=== PATIENT | female | born 1950 | race Caucasian/White ===

== ENCOUNTER 2018-01-31 11:18 | Observation (INO) | payer MEDICARE ==
[~2018-01-31] VITALS: Ht 162.6 cm; Wt 60.3 kg
--- NOTE | 2018-01-31 12:21 | REP ---
CT Head without contrast HISTORY: Fall COMPARISON: None An area of decreased attenuation is present in the left basal ganglia. This represents an old lacunar infarction. Areas of decreased attenuation are present in the periventricular white matter. This represents small-vessel ischemic disease. There is no intraparenchymal hemorrhage, acute infarct, mass or midline shift. The ventricular system and cortical sulci as well as subarachnoid space in the posterior fossa are dilated consistent with mild volume loss. There is no extra cerebral collection. There is no fracture. The visualized sinuses are clear. IMPRESSION: 1. Old left basal ganglia lacunar infarction. 2. Small vessel ischemic disease. 3. Mild volume loss. Electronically Signed by Quan Quiñones MD 01/31/2018 12:13 P
--- NOTE | 2018-01-31 13:17 | REP ---
CT CERVICAL SPINE WITHOUT CONTRAST: HISTORY: Fall. There is no acute fracture or subluxation. Disc bulges are present at the C2-3 through C6-7 levels. There is minimal narrowing of the spinal canal. Uncinate process and/or facet hypertrophy are present at the C2-3 and C4-5 - C6-7 levels. These findings produce minimal narrowing of the neural foramina. The C5-6 and C6-7 intervertebral discs are decreased in height consistent with disc degeneration. IMPRESSION: 1. There is no acute fracture or subluxation. 2. There is cervical spondylosis at the C2-3 through C6-7 levels. Electronically Signed by Quan Quiñones MD 01/31/2018 01:20 P
[2018-01-31 13:35] LABS: BASO % 0.4 % (0.0-1.0); EOS % 0.1 % (0.0-3.0); HEMATOCRIT 41.2 % (36.0-47.0); HEMOGLOBIN 14.7 g/dl (12.0-15.5); LYMPH # 1.5 10^3/uL (1.5-4.5); LYMPH % 14.6 % (24.0-44.0); MEAN CORPUSCULAR HGB CONC 35.7 g/dl (32.0-36.5); MEAN CORPUSCULAR VOLUME 98.1 fl (80.0-96.0); MONO # 0.6 10^3/uL (0.0-0.8); MONO % 6.4 % (0.0-5.0); NEUTROPHILS # 7.8 10^3/uL (1.8-7.7); NEUTROPHILS % 78.2 % (36.0-66.0); PLATELET COUNT, AUTOMATED 284 10^3/uL (150-450); WHITE BLOOD COUNT 9.9 10^3/uL (4.0-10.0)
[2018-01-31] MEDS ORDERED: LABETALOL HCL 100 MG/20 ML VIAL IV STA (13:50)
[2018-01-31 13:56] LABS: INR 0.92; PROTHROMBIN TIME 12.4 SECONDS (12.1-14.4)
[2018-01-31 13:57] LABS: PARTIAL THROMBOPLASTIN TIME 28.8 SECONDS (25.4-37.6)
[2018-01-31 14:17] LABS: BLOOD UREA NITROGEN 12 MG/DL (7-18); CALCIUM LEVEL 9.5 MG/DL (8.8-10.2); CARBON DIOXIDE LEVEL 23 MEQ/L (21-32); CHLORIDE LEVEL 101 MEQ/L (98-107); GLOMERULAR FILTRATION RATE > 60.0 (>45); GLUCOSE, FASTING 94 MG/DL (70-100); POTASSIUM SERUM 4.3 MEQ/L (3.5-5.1); SODIUM LEVEL 134 MEQ/L (136-145)
[2018-01-31 14:19] LABS: CK-MB VALUE MASS < 1.0 NG/ML (<3.6); CPK CREATINE PHOSPHOKINASE 55 U/L (26-192); MB/CK RELATIVE INDEX 1.82 (< OR =4); TROPONIN I 0.02 NG/ML (< 0.10)
[2018-01-31] MEDS ORDERED: ASPIRIN 325 MG TAB PO ONE (14:30)
[2018-01-31] MEDS ORDERED: VITA500T PO (14:34)
[2018-01-31] MEDS ORDERED: CALC1TAB40 PO (14:34)
[2018-01-31] MEDS ORDERED: VITATAB11 PO (14:34)
[2018-01-31] MEDS ORDERED: FISH1000 PO (14:34)
[2018-01-31] MEDS ORDERED: VITAD1000T PO (14:34)
[2018-01-31] MEDS ORDERED: VITA400C67 PO (14:34)
[2018-01-31] MEDS ORDERED: ONDANSETRON 4MG/2ML VIAL (J2405) IV PRN (16:30)
[2018-01-31] MEDS ORDERED: LABETALOL HCL 100 MG/20 ML VIAL IV PRN (16:30)
[2018-01-31] MEDS ORDERED: LISINOPRIL 5 MG TAB PO ONE (16:45)
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
[2018-01-31 18:35] LABS: CK-MB VALUE MASS < 1.0 NG/ML (<3.6); CPK CREATINE PHOSPHOKINASE 16 U/L (26-192); MB/CK RELATIVE INDEX 6.25 (< OR =4); TROPONIN I 0.03 NG/ML (< 0.10)
--- NOTE | 2018-01-31 18:50 | ECGEPIP ---
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 Order Number: [id number] Reading MD: Deniz Chen Measurements Intervals [place] Rate: 93 P: 43 [place]: 155 QRS: 21 QRSD: 92 T: 17 QT: 337 QTc: 419 Interpretive Statements SINUS RHYTHM POSSIBLE LEFT ATRIAL ENLARGEMENT NO PRIORS FOR COMPARISON Electronically Signed On 01-31-2018 18:50:29 EST by Deniz Chen
--- NOTE | 2018-01-31 18:58 | REPVR ---
EXAM: MR Head Without Contrast EXAM DATE/TIME: 01/31/2018 5:22 PM CLINICAL HISTORY: 67 years old, female; Signs and symptoms; Visual disturbance; Patient HX: HX fall 3 days ago; Additional info: Diploplia TECHNIQUE: MR of the head without contrast. COMPARISON: MRA BRAIN W/O CONTRAST 01/31/2018 5:01 PM FINDINGS: Brain: There are several small hyperintense foci scattered throughout the white matter. DWI images demonstrate no evidence of acute infarct. Gradient echo images demonstrate no evidence of hemorrhage. There is no extra-axial collection. There is no mass. There are no abnormal flow voids. Ventricles: There is no hydrocephalus. Bones/joints: Unremarkable. Soft tissues: Normal. Sinuses: Normal as visualized. No acute sinusitis. Mastoid air cells: Normal as visualized. No mastoid effusion. Orbits: Unremarkable. IMPRESSION: Chronic microvascular disease. No acute lesion or injury. Electronically signed by: Domenic Smalls On 01/31/2018 18:58:27 PM
[2018-01-31 19:09] LABS: FOLATE > 24.0 NG/ML (>5.4); VITAMIN B12 LEVEL 1144 PG/ML (247-911)
--- NOTE | 2018-01-31 19:13 | REPVR ---
EXAM: MR Angiography Neck Without Contrast EXAM DATE/TIME: 01/31/2018 1:00 PM CLINICAL HISTORY: 67 years old, female; Signs and symptoms; Visual disturbance; Diplopia; Patient HX: HX fall 3 days ago; Additional info: Diploplia TECHNIQUE: Magnetic resonance angiography images of the neck without intravenous contrast. COMPARISON: CT Spine,cervical w/o contrast 01/31/2018 11:42 AM FINDINGS: Right common carotid artery: Normal. No significant stenosis. No dissection or occlusion. Right internal carotid artery: Normal. Extracranial segment is patent with no significant stenosis. No dissection or occlusion. Right external carotid artery: Normal. No significant stenosis. No dissection or occlusion. Right vertebral artery: Dominant. Normal. No significant stenosis. No dissection or occlusion. Left common carotid artery:Normal. No significant stenosis. No dissection or occlusion. Left internal carotid artery: Normal. Extracranial segment is patent with no significant stenosis. No dissection or occlusion. Left external carotid artery: Normal. No significant stenosis. No dissection or occlusion. Left vertebral artery: Mildly hypoplastic. Origin is partly obscured by artifact and cannot be fully evaluated, it is patent.. there is loss of signal in the left vertebral artery at the skull base.. IMPRESSION: No carotid stenosis. Dominant right vertebral artery. Hypoplastic left vertebral artery with loss of signal at the skull base further discussed on the brain MRA. COMMENT: Reference per NASCET criteria for degree of stenosis: Mild: <50% stenosis. Moderate: 50-69% stenosis. Severe: 70-94% stenosis. Near occlusion: 95-99% stenosis. Electronically signed by: Domenic mSalls On 01/31/2018 19:12:57 PM
--- NOTE | 2018-01-31 19:15 | REPVR ---
EXAM: MR Angiogram Head Without Contrast, Arteries EXAM DATE/TIME: 01/31/2018 5:22 PM CLINICAL HISTORY: 67 years old, female; Signs and symptoms; Visual disturbance; Diplopia; Patient HX: HX fall monday; Additional info: Diploplia TECHNIQUE: MR angiogram head without contrast. Exam focused on the arteries. COMPARISON: CT Head without contrast 01/31/2018 11:42 AM FINDINGS: Right internal carotid artery: Unremarkable. Intracranial segment is patent with no significant stenosis. No aneurysm. Right anterior cerebral artery: Unremarkable. No occlusion or significant stenosis. No aneurysm. Right middle cerebral artery: Unremarkable. No occlusion or significant stenosis. No aneurysm. Right posterior cerebral artery: Unremarkable. No occlusion or significant stenosis. No aneurysm. Right vertebral artery: The right vertebral artery is dominant. No stenosis or occlusion. No aneurysm. Left internal carotid artery: Unremarkable. Intracranial segment is patent with no significant stenosis. No aneurysm. Left anterior cerebral artery: Unremarkable. No occlusion or significant stenosis. No aneurysm. Left middle cerebral artery: Unremarkable. No occlusion or significant stenosis. No aneurysm. Left posterior cerebral artery: Unremarkable. No occlusion or significant stenosis. No aneurysm. Left vertebral artery: The left vertebral artery is hypoplastic. On this scan, there is a loss of signal in the left vertebral artery from C1-C3 foramen magnum. It becomes visible in the posterior fossa proximal to the origin of the left PICA which is widely patent. However, on the accompanying neck MRA, flow is visualized within part of the left vertebral artery which is not visible on the current scan. Basilar artery: Unremarkable. No occlusion or significant stenosis. No aneurysm. Other: There is no evidence of intramural hematoma on source images. IMPRESSION: 1. Loss of signal in the distal left vertebral artery from C1 to the proximal V4 intracranial segment. This is consistent with severe stenosis or short segment occlusion. However it is at least partly artifactual as part of this segment was visualized on the neck MRA and was patent. The intracranial vertebral artery from the left PICA to the vertebrobasilar junction is widely patent. It may be supplied in a retrograde fashion. 2. No evidence of anterior circulation stenosis or occlusion. Electronically signed by: Domenic Smalls On 01/31/2018 19:15:42 PM
[2018-01-31 20:00] VITALS: BP 122/75
[2018-01-31] MEDS: ACETAMINOPHEN TAB 650MG DOSE (2X325MG) PO PRN (20:18)
[2018-01-31] MEDS ORDERED: amLODIPine 5 MG TAB PO ONE (20:30)
--- NOTE | 2018-01-31 21:42 | ECHO ---
DATE OF PROCEDURE: 01/31/2018 REFERRING PHYSICIAN: Osmany Perez MD INDICATION: Abnormal ECG. HEIGHT: 160 cm WEIGHT: 59.3 kg 2D MEASUREMENTS: Left atrium: 3.1 cm Aortic root: 3.0 cm Ventricular septum: 1.41 cm Posterior wall: 1.36 cm Left ventricle diastole: 3.4 cm Aortic annulus: 1.9 cm Left atrial volume index: 26 Inferior vena cava: 1.8 cm DOPPLER MEASUREMENTS: Aortic valve velocity: 118 cm/s LVOT velocity: 104 cm/s LVOT VTI: 24.0 cm Mild mitral regurgitation. Mitral E velocity: 75.2 cm/s Mitral A velocity: 99.4 cm/s Mitral deceleration time: 292 ms Very mild tricuspid regurgitation. Estimated right ventricle systolic pressure 30 mmHg assuming a right atrial pressure of 5 mmHg. Pulmonary artery systolic pressure: 22 mmHg. MITRAL ANNULAR TISSUE DOPPLER: E prime septal: 4.9 cm/s E prime lateral: 6.85 cm/s DESCRIPTION: Rhythm was sinus. Image quality was fair. No pericardial effusion. This is a 2D, M-mode, color flow Doppler and pulse wave Doppler examination that included mitral annular tissue Doppler. CONCLUSIONS: 1. Mild concentric left ventricle hypertrophy. Normal regional left ventricle (LV) wall motion and wall thickening. Normal LV systolic function. Left ventricular ejection fraction (LVEF) 65% by visual estimate. Grade 1 LV diastolic dysfunction (impaired relaxation filling pattern). 2. Normal left atrial size. 3. Mild aortic valve sclerosis of a three-cuspid aortic valve. No aortic regurgitation. 4. Moderate mitral annular calcification. Mild mitral regurgitation. No mitral stenosis.
[2018-01-31 22:00] VITALS: BP 112/66
[2018-01-31 23:59] VITALS: BP 105/59
[2018-02-01] VITALS (7 sets, daily range): BP systolic 111–140; BP diastolic 62–97
[2018-02-01 00:37] LABS: CK-MB VALUE MASS < 1.0 NG/ML (<3.6); CPK CREATINE PHOSPHOKINASE 22 U/L (26-192); MB/CK RELATIVE INDEX 4.55 (< OR =4); TROPONIN I 0.03 NG/ML (< 0.10)
[2018-02-01 06:52] LABS: HEMOGLOBIN 13.1 g/dl (12.0-15.5); MEAN CORPUSCULAR HEMOGLOBIN 35.2 pg (27.0-33.0); MEAN CORPUSCULAR HGB CONC 35.4 g/dl (32.0-36.5); MEAN CORPUSCULAR VOLUME 99.5 fl (80.0-96.0); PLATELET COUNT, AUTOMATED 253 10^3/uL (150-450); RED BLOOD COUNT 3.72 10^6/uL (4.00-5.40); WHITE BLOOD COUNT 6.6 10^3/uL (4.0-10.0)
[2018-02-01 07:18] LABS: BLOOD UREA NITROGEN 11 MG/DL (7-18); CALCIUM LEVEL 8.6 MG/DL (8.8-10.2); CARBON DIOXIDE LEVEL 26 MEQ/L (21-32); CHLORIDE LEVEL 99 MEQ/L (98-107); CREATININE FOR GFR 0.61 MG/DL (0.55-1.30); GLOMERULAR FILTRATION RATE > 60.0 (>45); GLUCOSE, FASTING 118 MG/DL (70-100); POTASSIUM SERUM 3.3 MEQ/L (3.5-5.1); SODIUM LEVEL 133 MEQ/L (136-145)
[2018-02-01 07:26] LABS: CK-MB VALUE MASS < 1.0 NG/ML (<3.6); CPK CREATINE PHOSPHOKINASE 20 U/L (26-192); TROPONIN I 0.02 NG/ML (< 0.10)
[2018-02-01] MEDS: ASPIRIN 325 MG TAB PO SCH (09:58)
[2018-02-01] MEDS: amLODIPine 5 MG TAB PO SCH (09:58)
[2018-02-01] MEDS: ACETAMINOPHEN TAB 650MG DOSE (2X325MG) PO PRN ×2 (10:42→22:12)
[2018-02-01] MEDS ORDERED: SLF 3 ML SYR IV PRN (14:15)
[2018-02-01] MEDS: SLF 3 ML SYR IV SCH (22:11)
[2018-02-02 04:00] VITALS: BP 128/85
[2018-02-02] MEDS: SLF 3 ML SYR IV SCH (04:58)
[2018-02-02 05:19] LABS: HEMATOCRIT 35.5 % (36.0-47.0); HEMOGLOBIN 12.6 g/dl (12.0-15.5); MEAN CORPUSCULAR HEMOGLOBIN 34.8 pg (27.0-33.0); MEAN CORPUSCULAR HGB CONC 35.5 g/dl (32.0-36.5); MEAN CORPUSCULAR VOLUME 98.1 fl (80.0-96.0); PLATELET COUNT, AUTOMATED 228 10^3/uL (150-450); RED BLOOD COUNT 3.62 10^6/uL (4.00-5.40); WHITE BLOOD COUNT 7.5 10^3/uL (4.0-10.0)
[2018-02-02 05:41] LABS: BLOOD UREA NITROGEN 10 MG/DL (7-18); CALCIUM LEVEL 8.5 MG/DL (8.8-10.2); CARBON DIOXIDE LEVEL 27 MEQ/L (21-32); CHLORIDE LEVEL 101 MEQ/L (98-107); CREATININE FOR GFR 0.58 MG/DL (0.55-1.30); GLOMERULAR FILTRATION RATE > 60.0 (>45); GLUCOSE, FASTING 98 MG/DL (70-100); POTASSIUM SERUM 3.4 MEQ/L (3.5-5.1); SODIUM LEVEL 134 MEQ/L (136-145)
[2018-02-02 07:41] VITALS: BP 126/85
--- NOTE | 2018-02-02 07:41 | IPNPDOC ---
Subjective Date Seen The patient was seen on 02/02/18. Subjective Chief Complaint/HPI Progress note for 02/01/18. Patient states she had difficulties sleeping overnight and her eye patch is uncomfortable. She states she still experiences diplopia when using both eyes but not when using one eye. She states it is impr lalo when she tilts her head to the left. Patient denies any numbness, tingling, weakness, fevers, chills, headache, dizziness, chest pain, SOB, nausea, vomiting, abdominal pain. She states nothing like this has ever happened before. She does not wish to stay overnight. Objective Physical Examination General Exam: Positive: Alert, Cooperative, Mild Distress Eye Exam: Positive: PERRLA, Conjunctiva & lids normal, EOMI; Negative: Sclera icteric, Ptosis ENT Exam: Positive: Atraumatic, Mucous membr. moist/pink, Pharynx Normal, Tongue Midline Chest Exam: Positive: Clear to auscultation, Normal air movement Heart Exam: Positive: Rate Normal, Normal S1, Normal S2; Negative: Gallops, Murmurs, Rubs Abdomen Exam: Positive: Normal bowel sounds, Soft; Negative: Tenderness Extremity Exam: Negative: Clubbing, Cyanosis, Edema Skin Exam: Positive: Nl turgor and temperature Neuro Exam: Positive: Normal Gait, Normal Speech, Strength at 5/5 X4 ext, Sensation Intact, Cranial Nerves 3-12 NL Psych Exam: Positive: Anxiety Assessment /Plan Assessment 1. Diplopia, ataxia, dizziness, with right fourth nerve palsy. MRI/MRA brain shows no evidence of CVA. - Continue aspirin/statin. B12 levels elevated, folate, TSH, ammonia levels are normal. - Dr. Judge with neurology to see patient today. - Neuro checks every 4 hours. 2. Hypertensive urgency - Starting patient on Norvasc, continue Labetalol 3. History of tobacco abuse- counseled on cessation 4. Medical noncompliance 5. History of arthritis and chronic lower back pain DVT prophylaxis- SCDs Plan/VTE VTE Prophylaxis Ordered?: Yes VS, I&O, 24H, Fishbone Vital Signs/I&O Vital Signs Date Time Temp Pulse Resp B/P (MAP) Pulse Ox O2 Delivery O2 Flow Rate FiO2 02/02/18 04:00 98.3 72 16 128/85 (99) 96 Room Air I&O- Last 24 Hours up to 6 AM 02/02/18 06:00 Intake Total 2100 ml Output Total 2250 ml Balance -150 ml Laboratory Data 24H LABS Laboratory Tests 2 02/01/18 18:18: 02/02/18 05:14: Nucleated Red Blood Cells % (auto) 0.0, Anion Gap 6L, Glomerular Filtration Rate > 60.0, Blood Urea Nitrogen 10, Creatinine 0.58, Sodium Level 134L, Potassium Level 3.4L, Chloride Level 101, Carbon Dioxide Level 27, Calcium Level 8.5L CBC/BMP Laboratory Tests 02/02/18 05:14 Red Blood Count 3.62 L, Mean Corpuscular Volume 98.1 H, Mean Corpuscular Hemoglo bin 34.8 H, Mean Corpuscular Hemoglobin Concent 35.5, Red Cell Distribution Width 12.2, Calcium Level 8.5 L GME ATTESTATION GME ATTESTATION My faculty preceptor for this patient encounter was physically present during the encounter and was fully available. All aspects of the patient interview, examination, medical decision making process, and medical care plan development were reviewed and approved by the faculty preceptor. The faculty preceptor is aware and concurs with the plan as stated in the body of this note and will attest to such by his/her cosignature. STEPHANIE ZHENG DO Feb 02, 2018 07:41
[2018-02-02 08:11] VITALS: BP 126/85
[2018-02-02] MEDS: ASPIRIN 325 MG TAB PO SCH (08:11)
[2018-02-02] MEDS: amLODIPine 5 MG TAB PO SCH (08:11)
[2018-02-02] MEDS: ACETAMINOPHEN TAB 650MG DOSE (2X325MG) PO PRN (08:12)
[2018-02-02] MEDS ORDERED: AMLO5TAB6 PO (10:04)
[2018-02-02 11:15] LABS: MAGNESIUM LEVEL 2.2 MG/DL (1.8-2.4)
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
[2018-02-15 14:13] LABS: ACETYLCHOLINE RCPTOR BINDING A < 0.03 nmol/L (0.00-0.24); ACETYLCHOLINE RCPTOR BLOCK AB 11 % (0-25); ACETYLCHOLINE RCPTOR MODULATIN <12 % (0-20)
== END 2018-02-02 13:40 | disposition home or self-care (01) ==
LOC: M ED 11:18 → M ED INP 16:19 → M PCU 19:41
PROVIDERS: ADMIT Internal Medicine; ATTEND Internal Medicine
DX: H49.13 Fourth [trochlear] nerve palsy, bilateral (principal); I16.0 Hypertensive urgency; F17.210 Nicotine dependence, cigarettes, uncomplicated; Z91.14 Patient's other noncompliance with medication regimen; M54.5 Low back pain; M19.90 Unspecified osteoarthritis, unspecified site
CPT/HCPCS: 36415; 70450; 70544; 70547; 70551; 72125; 80048; 82140; 82550; 82553; 82607; 82746; 83519; 83735; 84443; 84484; 85025; 85027; 85610; 85730; 86850; 86900; 86901; 93005; 93041; 93306; 94760; 96374; 96376; 97116; 97162; 99285; G0378; G8978; G8979; G8980

== ENCOUNTER 2023-09-27 19:30 | Emergency (ER) | payer MEDICARE, MEDICAID ==
[~2023-09-27] VITALS: Ht 162.6 cm; Wt 55.1 kg
[~2023-09-27 19:30] MED LIST: AMLO1TAB24 PO; CALC1TAB40 PO; CHOL100029 PO; FISH1000 PO; VITA-243 PO; VITA400C67 PO; VITATAB11 PO
[2023-09-28] MEDS: ACETAMINOPHEN TAB 650MG DOSE (2X325MG) PO ONE (00:08)
[2023-09-28] MEDS: LORazepam 1 MG TAB PO STA (03:02)
[2023-09-28] MEDS ORDERED: ONDANSETRON 4MG ORAL DISINTEGRATING TAB PO PRN (03:25)
[2023-09-28] MEDS ORDERED: MORPHINE 10MG/0.5ML ORAL CONCENTRATE SOLUTION U/D SL PRN (03:25)
[2023-09-28 03:31] VITALS: O2SAT 97
[2023-09-28] MEDS: LORazepam 1 MG TAB PO PRN (10:40)
[2023-09-28] MEDS: SCOPOLAMINE 1MG TRANSDERMAL PATCH TOP SCH (10:40)
[2023-09-28] MEDS: ACETAMINOPHEN TAB 650MG DOSE (2X325MG) PO PRN (10:40)
[2023-09-28] MEDS ORDERED: traMADol 50 MG TAB PO PRN ×2 (11:00→16:00)
[2023-09-28] MEDS: traMADol 50 MG TAB PO ONE (11:03)
[2023-09-28] MEDS ORDERED: HYOS125TA PO (14:38)
[2023-09-28] MEDS ORDERED: MORP1SOL5 PO (14:38)
[2023-09-28] MEDS ORDERED: ATIV1TAB10 PO (14:38)
[2023-09-28] MEDS ORDERED: TRAN1DIS4 TOP (14:38)
[2023-09-29 11:00] VITALS: BP 96/58; TEMP 97.1
== END 2023-09-29 11:00 | disposition home or self-care (01) ==
LOC: M ED 19:30
DX: M79.605 Pain in left leg (principal); Z79.899 Other long term (current) drug therapy